=== PATIENT | female | born 1975 | race Caucasian/White ===

== ENCOUNTER 2016-06-20 08:32 | Emergency (ER) | payer OTHER ==
[~2016-06-20 08:32] MED LIST: ANAPROX DS550 MG PO; BACTRIM DS 8001 TA1 PO; BIRTH CONTROL1 EAC1 PO; CELEBREX200 MG; CIPRO250 MG PO; HYDROCODONE BIT1 T11 PO; Motrin,Rufen800 MG PO; NKHM; NKHM PO; NO DAILY MEDS; OXY IR5 MG PO; PYRIDIUM200 MG PO; SEPTRA DS 800 M1 TAB PO; SUPARTZ FX10 MG/1 ML IU; TRAMADOL HCL50 MG PO; ULTRAM50 MG PO; VICO75300 PO; VICODIN 5/500 505 MG PO; VICODIN 500 MG-1 TAB PO
[2016-06-20] MEDS ORDERED: ATIVAN1 MG PO (08:37)
== END 2016-06-20 09:41 | disposition home or self-care (01) ==
LOC: ED 08:32
DX: F41.0 Panic disorder [episodic paroxysmal anxiety] (principal); F17.200 Nicotine dependence, unspecified, uncomplicated; Z98.890 Other specified postprocedural states; Z98.51 Tubal ligation status; Z90.710 Acquired absence of both cervix and uterus; Z88.0 Allergy status to penicillin; Z88.6 Allergy status to analgesic agent; Z88.8 Allergy status to other drugs, medicaments and biological substances

== ENCOUNTER 2016-06-22 10:13 | Emergency (ER) | payer OTHER ==
[~2016-06-22] VITALS: Ht 175.2 cm; Wt 54.4 kg
[~2016-06-22 10:13] MED LIST changes: +ATIVAN1 MG PO
[2016-06-22] MEDS ORDERED: NEURONTIN100 MG PO (10:18)
[2016-06-22] MEDS ORDERED: ATIVAN1 MG PO (10:19)
[2016-06-22 10:53] LABS: BASO # 0.1 10*3/uL (0.0-0.1); BASO % 0.7 % (0.0-1.0); EOS % 0.6 % (1.0-4.0); HEMATOCRIT 43.7 % (37.0-47.0); HEMOGLOBIN 14.9 g/dl (12.0-16.0); LYMPH % 28.8 % (27.0-41.0); MEAN CELL VOLUME 92.6 fl (81.0-99.0); MEAN CORPUSCULAR HGB 31.6 pg (27.0-31.0); MEAN CORPUSCULAR HGB CONC 34.1 g/dl (33.0-37.0); MONO # 0.4 10*3/uL (0.1-1.0); MONO % 5.3 % (3.0-9.0); NEUT # 4.4 10*3/uL (2.3-7.9); NEUT % 64.5 % (47.0-73.0); PLATELET COUNT AUTOMATED 279 10*3/uL (130-400); RED BLOOD COUNT 4.72 10*6/uL (4.10-5.10); RED CELL DISTRI WIDTH 13.2 % (0-14.5); WHITE BLOOD COUNT 6.8 10*3/uL (4.8-10.8)
[2016-06-22 11:03] LABS: BUN 10 mg/dl (7-24); CARBON DIOXIDE 27 mmol/L (21-32); CHLORIDE 107 mmol/L (98-107); EST GLOM FILT AFRICAN AMERICAN > 60 ml/min; GLUCOSE 89 mg/dL (65-99); SODIUM 142 mmol/L (136-145)
[2016-06-22 11:36] LABS: BILIRUBIN NEGATIVE (NEGATIVE); BLOOD NEGATIVE (NEGATIVE); CLARITY SL CLOUDY (CLEAR); COLOR YELLOW (YELLOW); GLUCOSE NEGATIVE (NEGATIVE); KETONE NEGATIVE (NEGATIVE); LEUKO ESTERASE TRACE (NEGATIVE); NITRITE POSITIVE (NEGATIVE); PROTEIN NEGATIVE (NEGATIVE); UROBILINOGEN 0.2 E.U./dl (0.2-1.0)
[2016-06-22 11:46] LABS: BACTERIA 3+; URINE REFLEX COMMENT YES (NO)
[2016-06-22 11:47] LABS: URINE AMPHETAMINES < 1000 (1000ng/ml); URINE BARBITURATES < 200 (200ng/ml); URINE COCAINE < 300 (300ng/ml)
[2016-06-22] MEDS ORDERED: XANAX0.25 MG PO (12:11)
[2016-06-22] MEDS ORDERED: LEVAQUIN250 M1 PO (12:14)
== END 2016-06-22 13:26 | disposition home or self-care (01) ==
LOC: ED 10:13
PROVIDERS: Emergency Medicine
DX: F41.9 Anxiety disorder, unspecified (principal); N39.0 Urinary tract infection, site not specified; F17.200 Nicotine dependence, unspecified, uncomplicated; Z90.710 Acquired absence of both cervix and uterus; Z98.51 Tubal ligation status; Z98.890 Other specified postprocedural states; Z88.0 Allergy status to penicillin; Z88.6 Allergy status to analgesic agent; Z88.8 Allergy status to other drugs, medicaments and biological substances

== ENCOUNTER 2018-05-29 10:00 | Emergency (ER) | payer OTHER ==
[~2018-05-29] VITALS: Ht 172.7 cm; Wt 59.0 kg
[~2018-05-29 10:00] MED LIST changes: +LEVAQUIN250 M1 PO; +NEURONTIN100 MG PO; +XANAX0.25 MG PO
[2018-05-29] MEDS ORDERED: ZITHROMAX250 MG PO (10:08)
== END 2018-05-29 10:14 | disposition home or self-care (01) ==
LOC: ED 10:00
DX: J02.9 Acute pharyngitis, unspecified (principal); R59.0 Localized enlarged lymph nodes; Z20.818 Contact with and (suspected) exposure to other bacterial communicable diseases; Z88.0 Allergy status to penicillin; Z88.6 Allergy status to analgesic agent; Z88.8 Allergy status to other drugs, medicaments and biological substances; Z79.899 Other long term (current) drug therapy; Z79.2 Long term (current) use of antibiotics; Z90.710 Acquired absence of both cervix and uterus